=== PATIENT | male | born 1935 | race Caucasian/White ===

== ENCOUNTER 2025-05-01 13:42 | Outpatient (CLI) | payer MEDICARE, SELFPAY ==
--- NOTE | ~2025-05-01 | PE_ITS ---
EXAMINATION: PET_PETPSMAST_PT DATE: 05/02/2025 14:54 INDICATION: Malignant neoplasm of overlapping sites of bladder. TECHNIQUE: 4.053 mCi of Ga-68 gozetotide was administered intravenously. The patient then refused the PET/CT. COMPARISON: None FINDINGS: None. IMPRESSION: 1. The patient refused the PET/CT after injection of the radiopharmaceutical. Reviewed, dictated and finalized at location E.
== END 2025-05-01 13:43 | disposition home or self-care (01) ==
PROVIDERS: Visit Provider Urology
DX: C67.8 Malignant neoplasm of overlapping sites of bladder (principal)
CPT/HCPCS: 78815; A9596